=== PATIENT | male | born 1975 | race Caucasian/White ===

== ENCOUNTER → 2020-05-18 | Outpatient (CLI) | payer OTHER ==
[~2020-05-18] MED LIST: ACETAMINOPHEN-1 EAC2 PO; ACTOS 30 MG TAB30 M1 PO; DOXEPIN 10 MG C10 MG PO; FENOFIBRATE160 MG PO; GLUMETZA500 PO; HYDROCODON-ACE1 EAC7 PO; LANTUS SUBQ; LEXAPRO20 MG PO; LISINOPRIL20 MG PO
== END ==
LOC: LAB 10:27
PROVIDERS: ATTEND Podiatrist Foot & Ankle Surgery
DX: Z01.812 Encounter for preprocedural laboratory examination (principal); Z20.828 Contact with and (suspected) exposure to other viral communicable diseases

== ENCOUNTER → 2020-05-21 | Day surgery (SDC) | payer OTHER ==
[~2020-05-21] VITALS: Ht 182.9 cm; Wt 134.5 kg
--- NOTE | 2020-05-21 14:25 | EKG ---
[facility] [place] [address] ELECTROCARDIOGRAM REPORT Name: JONATHONRACHEL Room #: REG [facility] M..#: [id number] Admission: 05/21/20 Attend Phys: Hollis Chappell DPM Discharge: Date of : 77 Report #: [id number] THIS REPORT FOR: cc: AISHA - Family physician unknown AISHA - Family physician unknown Urban Waite MD [facility] ~ THIS REPORT FOR: //name// [facility] Test Date: 2020-05-21 Test Time: 14:08:17 Pat Name: RACHEL HOLT Department: Room: Gender: [employer] Associate: ANDREIA : 1975 Requested By: Hollis Chappell Order Number: [id number] MD: Urban Waite Measurements Intervals [place] Rate: 65 P: 45 WI: 151 QRS: 30 QRSD: 99 T: 13 QT: 401 QTc: 417 Interpretive Statements Sinus rhythm No previous ECG available for comparison Electronically Signed On 05-21-2020 14:25:30 [employer]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
[2020-05-21 14:34] VITALS: BP 144/93
[2020-05-21 14:42] LABS: HEMATOCRIT 39.5 % (42.0-52.0); HEMOGLOBIN 13.9 gm/dL (14.0-18.0); MCH 30.7 pg (26.0-34.0); MCHC 35.3 g/dL (28.0-37.0); MCV 86.9 fL (80.0-100.0); RBC 4.54 mil/uL (4.50-6.00); RDW 12.5 % (10.5-14.5); WBC 7.2 thou/uL (4.0-11.0)
[2020-05-21 14:49] LABS: CALCIUM 8.9 mg/dL (8.5-10.1); CREATININE 1.1 mg/dL (0.7-1.3); POTASSIUM 3.7 mmol/L (3.5-5.1)
[2020-05-21 16:32] VITALS: BP 144/93
== END | disposition home or self-care (01) ==
LOC: OR 09:21
PROVIDERS: ATTEND Podiatrist Foot & Ankle Surgery
DX: M72.2 Plantar fascial fibromatosis (principal); E11.9 Type 2 diabetes mellitus without complications; E80.0 Hereditary erythropoietic porphyria; Z98.890 Other specified postprocedural states; Z79.899 Other long term (current) drug therapy; Z79.4 Long term (current) use of insulin
CPT/HCPCS: 50010; 50101; 50386; 51291; 57091; 62110; 62900; 70005

== ENCOUNTER → 2020-12-24 | Outpatient (CLI) | payer OTHER | LOC: ULTRA 14:13 | PROVIDERS: ATTEND Orthopaedic Surgery Sports Medicine | DX: M79.662 Pain in left lower leg (principal) ==